=== PATIENT | male | born 1960 | race Caucasian/White ===

== ENCOUNTER → 2022-10-16 | Outpatient (CLI) | payer BC, OTHER ==
--- NOTE | 2022-10-16 09:46 | XR ---
EXAMINATION TYPE: XR ribs RT w pa chest xray DATE OF EXAM: 10/16/2022 COMPARISON: NONE TECHNIQUE: PA view of the chest and 4 views of the right ribs are submitted. Submitted. HISTORY: Pain FINDINGS: Visualized right lung is clear. No pneumothorax or focal pneumonia. Osseous structures are intact. IMPRESSION: 1. No acute displaced rib fracture
== END | disposition home or self-care (01) ==
LOC: RADXRYALE 08:34
PROVIDERS: ATTEND Physician Assistant
DX: R06.02 Shortness of breath (principal); R07.82 Intercostal pain